=== PATIENT | female | born 1975 | race Caucasian/White ===

== ENCOUNTER 2021-08-05 03:23 | Emergency (ER) | payer BC ==
[~2021-08-05] VITALS: Ht 170.2 cm; Wt 88.0 kg
[2021-08-05 04:53] VITALS: BP 101/73
== END 2021-08-05 04:53 | disposition home or self-care (01) ==
LOC: FSED 03:40
DX: R00.2 Palpitations (principal); T43.615A Adverse effect of caffeine, initial encounter; E11.65 Type 2 diabetes mellitus with hyperglycemia; R94.31 Abnormal electrocardiogram [ECG] [EKG]
CPT/HCPCS: 80053; 82553; 84484; 85025; 93005; 99283

== ENCOUNTER 2022-06-17 18:59 | Emergency (ER) | payer BC ==
[~2022-06-17] VITALS: Ht 170.2 cm; Wt 88.0 kg
[2022-06-17] MEDS ORDERED: CIPRO500 MG PO (19:34)
[2022-06-17] MEDS ORDERED: PYRIDIUM100 MG PO (19:34)
[2022-06-18] MEDS ORDERED: CEFDINIR300 MG PO (01:33)
== END 2022-06-17 20:05 | disposition home or self-care (01) ==
LOC: FSED 19:32
DX: R10.30 Lower abdominal pain, unspecified (principal); N39.0 Urinary tract infection, site not specified; E11.9 Type 2 diabetes mellitus without complications
CPT/HCPCS: 81003; 87086; 99282

== ENCOUNTER 2022-06-18 01:27 | Emergency (ER) | payer BC ==
[~2022-06-18] VITALS: Ht 170.2 cm; Wt 88.0 kg
[~2022-06-18 01:27] MED LIST: CIPRO500 MG PO; PYRIDIUM100 MG PO
[2022-06-18] MEDS ORDERED: CEFDINIR300 MG PO (01:33)
== END 2022-06-18 01:38 | disposition home or self-care (01) ==
LOC: ER 01:33
DX: N39.0 Urinary tract infection, site not specified (principal); E11.9 Type 2 diabetes mellitus without complications; Z79.4 Long term (current) use of insulin; Z96.41 Presence of insulin pump (external) (internal); Z91.041 Radiographic dye allergy status
CPT/HCPCS: 99282